=== PATIENT | female | born 1990 | race Caucasian/White ===

== ENCOUNTER 2022-07-19 11:47 | Emergency (ER) | payer OTHER, MEDICAID ==
[~2022-07-19] VITALS: Ht 162.6 cm; Wt 90.7 kg
[2022-07-19 11:52] VITALS: BP 126/75
--- NOTE | 2022-07-19 12:09 | NUR ---
31/ PRESENTS TO ED WITH C/O DYSURIA AND VAGINAL DISCHARGE. PATIENT REPORTS YELLOW VAGINAL DISCHARGE X3 WEEKS, STATING DYSURIA SINCE YESTERDAY, DENIES HEMATURIA. PATIENT REPORTS EPISODES OF CHILLS X2 WEEKS, DENIES TAKING MEDS FOR SYMPTOMS. UNSURE OF POSSIBLE STD EXPOSURE.
[2022-07-19] MEDS ORDERED: CEPH-588 PO (12:41)
[2022-07-19 12:51] VITALS: BP 126/75
--- NOTE | 2022-07-19 12:51 | NUR ---
Patient discharged with v/s stable. Written and verbal after care instructions ABOUT URINARY TRACT INFECTION given and explained. Patient alert, oriented and verbalized understanding of instructions. Ambulatory with steady gait. All questions addressed prior to discharge. ID band removed. Patient advised to follow up with PMD. Rx of KEFLEX given. Patient educated on indication of medication including possible reaction and side effects. Opportunity to ask questions provided and answered.
== END 2022-07-19 12:51 | disposition home or self-care (01) ==
LOC: MED 11:47
DX: N30.00 Acute cystitis without hematuria (principal); R11.0 Nausea; F17.200 Nicotine dependence, unspecified, uncomplicated; Z79.899 Other long term (current) drug therapy
CPT/HCPCS: 81002; 81025; 87086; 99283

== ENCOUNTER 2022-08-04 15:43 | Emergency (ER) | payer OTHER, MEDICAID ==
[~2022-08-04] VITALS: Ht 162.6 cm; Wt 91.2 kg
[~2022-08-04 15:43] MED LIST: CEPH-588 PO
[2022-08-04 15:54] VITALS: BP 123/78
[2022-08-04] MEDS ORDERED: KETOROLAC 30 MG/ML VIAL IM ONE (16:30)
--- NOTE | 2022-08-04 16:52 | NUR ---
Patient ambulated to bed 6.
[2022-08-04 17:16] VITALS: BP 150/91
[2022-08-04 17:31] LABS: BASOPHILS # (AUTO) 0.1 K/uL (0.00-0.22); BASOPHILS % (AUTO) 0.7 % (0.0-2.0); EOSINOPHILS # (AUTO) 0.1 K/uL (0-0.4); EOSINOPHILS % (AUTO) 1.8 % (0.0-4.0); HEMATOCRIT 38.2 % (36-48); HEMOGLOBIN 12.8 g/dL (12.0-16.0); LYMPHOCYTES # (AUTO) 2.7 K/uL (2.5-16.5); LYMPHOCYTES % (AUTO) 33.4 % (20.5-51.1); MEAN CORPUSCULAR HEMOGLOBIN 27 pg (27-31); MEAN CORPUSCULAR HGB CONC 33 g/dL (33-37); MEAN CORPUSCULAR VOLUME 81.6 fL (80-94); MONOCYTES # (AUTO) 0.8 K/uL (0.8-1.0); MONOCYTES % (AUTO) 9.4 % (1.7-9.3); NEUTROPHILS # (AUTO) 4.5 K/uL (1.8-7.7); NEUTROPHILS % (AUTO) 54.7 % (42.2-75.2); PLATELET COUNT (AUTO) 396 K/uL (140-450); RED BLOOD CELL COUNT(AUTO) 4.68 MIL/uL (4.20-5.40); RED CELL DISTRIBUTION WIDTH 17.4 % (11.6-13.7); WHITE BLOOD COUNT (AUTO) 8.2 K/uL (4.8-10.8)
[2022-08-04 17:45] LABS: ANION GAP 15.1 (8-16); BILIRUBIN,URINE NEGATIVE (NEGATIVE); BLOOD, URINE TRACE-L (NEGATIVE); CARBON DIOXIDE 25.9 mmol/L (21-32); COLOR,URINE YELLOW (YELLOW); CREATININE 0.7 mg/dL (0.6-1.3); LEUKOCYTE ESTERASE ,URINE 1+ (NEGATIVE); NITRITE, URINE NEGATIVE (NEGATIVE); UGLUCOSE NEGATIVE (NEGATIVE)
[2022-08-04 17:55] LABS: APPEARANCE,URINE HAZY (CLEAR)
[2022-08-04 18:18] LABS: RBC,URINE 0-5 /HPF (0-5)
--- NOTE | 2022-08-04 18:52 | NUR ---
RAMEZ SANZ AT BEDSIDE.
[2022-08-04] MEDS ORDERED: ONDANSETRON 4 MG/2 ML VIAL IVP ONE (19:00)
[2022-08-04] MEDS ORDERED: CIPR500T4 PO (19:08)
[2022-08-04] MEDS ORDERED: ONDA-188 PO (19:08)
[2022-08-04] MEDS ORDERED: IBUP-2213 PO (19:08)
--- NOTE | 2022-08-04 19:19 | NUR ---
GAVE REPORT TO TEODORO Raymundo RN.
[2022-08-04] MEDS ORDERED: cefTRIAXone 1,000 MG VIAL ONE (19:27)
--- NOTE | 2022-08-04 20:10 | NUR ---
Note sofie in EDM - 08/04/22 at 2019 by [email or web address] Patient will be admitted to care of DR. VALDEZ . Admited to TELE. Will go to room 120B. Belongings list completed. Report to CHARBEL. DX: *CHF *MED RECON COMPLETED * (-) TERA *PENDING ABG RESULTS *TROP = 78
== END 2022-08-04 20:18 | disposition home or self-care (01) ==
LOC: MED 15:43
DX: N10 Acute pyelonephritis (principal); F41.9 Anxiety disorder, unspecified; F32.A Depression, unspecified
CPT/HCPCS: 36415; 74176; 80048; 81001; 81025; 85025; 87086; 96372; 96374; 99285; J0696; J1885; J2405